=== PATIENT | female | born 1945 | race Caucasian/White ===

== ENCOUNTER → 2017-03-10 | Day surgery (SDC) | payer MEDICARE, OTHER | LOC: MSO 13:12 | DX: Z12.11 Encounter for screening for malignant neoplasm of colon (principal); K63.5 Polyp of colon; K57.90 Diverticulosis of intestine, part unspecified, without perforation or abscess without bleeding; I10 Essential (primary) hypertension; F17.210 Nicotine dependence, cigarettes, uncomplicated | CPT/HCPCS: 00810; J7120 ==

== ENCOUNTER 2018-09-02 10:58 | Outpatient (RCR) | payer MEDICARE, OTHER | END 2018-09-02 11:30 | disposition home or self-care (01) | LOC: PT 10:58 | DX: R29.6 Repeated falls (principal); R26.89 Other abnormalities of gait and mobility | CPT/HCPCS: G8978-GP; G8979-GP ==

== ENCOUNTER 2021-07-26 10:49 | Emergency (ER) | payer MEDICARE, OTHER ==
[~2021-07-26] VITALS: Ht 162.6 cm; Wt 57.4 kg
[2021-07-26] MEDS ORDERED: DONEPEZIL HCL10 MG PO (10:56)
[2021-07-26] MEDS ORDERED: ACETAMINOPHEN500 M7 PO (10:56)
[2021-07-26] MEDS ORDERED: AMLODIPINE BESYL5 MG PO (10:56)
[2021-07-26] MEDS ORDERED: ATORVASTATIN CA40 MG PO (10:57)
[2021-07-26] MEDS ORDERED: CALCIUM CITRAT1 EAC5 PO (10:58)
[2021-07-26] MEDS ORDERED: COZAAR 50MG50 MG/TAB PO (10:58)
[2021-07-26] MEDS ORDERED: WAL-ZYR10 MG PO (10:58)
[2021-07-26] MEDS ORDERED: MULTIVITAMIN1 EACH PO (10:59)
[2021-07-26] MEDS ORDERED: PREVAGEN PO (11:00)
[2021-07-26] MEDS ORDERED: VITAMIN B12 1541 TAB PO (11:00)
[2021-07-26 14:04] VITALS: BP 134/75
== END 2021-07-26 13:57 | disposition home or self-care (01) ==
LOC: ED 10:49
DX: S09.90XA Unspecified injury of head, initial encounter (principal); S01.01XA Laceration without foreign body of scalp, initial encounter; F03.90 Unspecified dementia, unspecified severity, without behavioral disturbance, psychotic disturbance, mood disturbance, and anxiety; Z79.899 Other long term (current) drug therapy; W01.198A Fall on same level from slipping, tripping and stumbling with subsequent striking against other object, initial encounter
CPT/HCPCS: 90715; L0172

== ENCOUNTER → 2022-01-09 | Day surgery (SDC) | payer MEDICARE, OTHER ==
[~2022-01-09] MED LIST: ACETAMINOPHEN500 M7 PO; AMLODIPINE BESYL5 MG PO; ATORVASTATIN CA40 MG PO; CALCIUM CITRAT1 EAC5 PO; COZAAR 50MG50 MG/TAB PO; DONEPEZIL HCL10 MG PO; MULTIVITAMIN1 EACH PO; PREVAGEN PO; VITAMIN B12 1541 TAB PO; WAL-ZYR10 MG PO
== END | disposition home or self-care (01) ==
LOC: MSO 08:07
DX: K63.5 Polyp of colon (principal); K62.1 Rectal polyp; R19.4 Change in bowel habit; K57.30 Diverticulosis of large intestine without perforation or abscess without bleeding; Z87.891 Personal history of nicotine dependence
CPT/HCPCS: 00811; J2704; J7120